=== PATIENT | male | born 1940 | race Caucasian/White ===

== ENCOUNTER 2018-08-06 09:39 | Day surgery (SDC) | payer MEDICARE, BC ==
[~2018-08-06 09:39] MED LIST: ceFAZolin 2 GM/50 ML 2 GM/50 ML BAG IV ONE
[2018-08-06] MEDS ORDERED: LACTATED RINGERS 1,000 ML IV ONE (10:31)
--- NOTE | 2018-08-06 10:41 | ANESTHESIA ---
Pre-Anesthesia VS, & Labs - Diagnosis Bilateral inguinal hernias - Procedure Bilateral open inguinal hernia repair Vital Signs: Temp Pulse Resp BP Pulse Ox 36.6 C 77 18 154/84 H 97 08/06/18 09:55 08/06/18 09:55 08/06/18 09:55 08/06/18 09:55 08/06/18 09:55 Height 5 ft 6 in Weight (kg) 69.2 kg - NPO >8 hours Home Medications and Allergies Home Medications: Ambulatory Orders Acetaminophen [Tylenol] 650 mg PO Q6H PRN 08/01/18 Glucosamine HCl 1 tab PO DAILY 08/01/18 Levothyroxine Sodium 75 mcg PO DAILY 08/01/18 [place]-3/Dha/Epa/Fish Oil [Fish Oil 1,000 mg Softgel] 1 each PO DAILY 08/01/18 [place] 1 tab PO DAILY 08/01/18 Acetaminophen [Tylenol] 650 mg PO Q6H PRN 08/01/18 Glucosamine HCl 1 tab PO DAILY 08/01/18 Levothyroxine Sodium 75 mcg PO DAILY 08/01/18 [place]-3/Dha/Epa/Fish Oil [Fish Oil 1,000 mg Softgel] 1 each PO DAILY 08/01/18 [place] 1 tab PO DAILY 08/01/18 Allergies/Adverse Reactions: Allergies Allergy/AdvReac Type Severity Reaction Status Date / Time No Known Drug Allergies Allergy Verified 08/01/18 11:10 Anes History & Medical History - Anesthetic History Family history of Anesthesia Complications: Denies Family history of Malignant Hyperthermia: Denies - Medical History Cardiovascular: reports: None Pulmonary: reports: None Gastrointestinal: reports: None Urinary: reports: Benign prostate hypertrophy Neuro: reports: None Musculoskeletal: reports: None Endocrine/Autoimmune: reports: HyPOthyroidism Blood Disorders: reports: None Skin: reports: None Smoking Status: Former smoker (Quit 20 years ago) Psychosocial: reports: No issues indicated Exam General: Alert, Oriented x3, Cooperative, No acute distress Dental: WNL Mouth Openin Fingerbreadth Neck Mobility: Normal Mallampati classification: III Thyromental Distance: less than 4 cm (2 FB) Respiratory: Lungs clear, Normal breath sounds, No respiratory distress, No accessory muscle use Cardiovascular: Regular rate, Normal S1, Normal S2, No murmurs Mental/Cognitive Status: Alert/Oriented X3, Normal for patient Plan Anesthesia Type: General Consent for Procedure(s) Verified and Reviewed: Yes Code Status: Attempt Resuscitation ASA classification: 2-Mild systemic disease Is this case an emergency?: No
[2018-08-06] MEDS ORDERED: BUPIVACAINE 0.5% PF 30 ML VIAL ONE (11:42)
[2018-08-06] MEDS ORDERED: LIDOCAINE-MPF 2% 5 ML VIAL IM ONE (12:00)
[2018-08-06] MEDS ORDERED: ACETAMINOPHEN 1,000 MG/100 ML 100 ML IV ONE (12:00)
[2018-08-06] MEDS ORDERED: MIDAZOLAM 2 MG/2 ML VIAL IVP ONE (12:00)
[2018-08-06] MEDS ORDERED: PROPOFOL 200 MG/20 ML VIAL IVP ONE (12:00)
[2018-08-06] MEDS ORDERED: DEXAMETHASONE 4 MG/ML VIAL IVP ONE (12:00)
[2018-08-06] MEDS ORDERED: fentaNYL 100 MCG/2 ML VIAL IVP ONE (12:00)
[2018-08-06] MEDS ORDERED: ONDANSETRON 4 MG/2 ML VIAL IVP ONE (12:00)
[2018-08-06] MEDS ORDERED: BUPIVACAINE 0.5% PF 30 ML VIAL SUBQ ONE (12:25)
--- NOTE | 2018-08-06 13:48 | OPERATIVE REPORT ---
Operative Report - General Procedure Date: 08/06/18 Planned Procedure: Bilateral inguinal herniorrhaphy Pre-Op Diagnosis: Bilateral inguinal hernia Procedure Performed: Left direct and indirect inguinal herniorrhaphy with mesh Right direct inguinal herniorrhaphy with mesh Post Op Diagnosis: Left direct and indirect inguinal hernia, right direct inguinal hernia - Procedure Note Primary Surgeon: Danilo Osman MD Anesthesia Provider: Cony Bernstein CRNA Anesthesia Technique: General LMA, Local (30 mL of half percent Marcaine) IV Fluids (mL): 900 Estimated Blood Loss (mL): 10 Drain/Tube Type: Other (None.) Complications: None. - Other Other Information/Narrative: OPERATIVE DESCRIPTION/REPORT: After verbal and written informed consent was obtained detailing the risks of infection, bleeding requiring transfusion with its risks, nerve injury, and , and after I met with the patient confirming the surgery and the site of the surgery and after initialing the site of the surgery with a surgical marker, the patient was brought to the operative suite and placed supine on the operating table. Great care was taken to avoid pressure points to prevent pressure necrosis or nerve injury. Monitoring devices were applied along with TEDs and pneumatic compressive stockings (to prevent DVT). The patient received preoperative antibiotics for surgical prophylaxis. Cony Bernstein CRNA sedated and anesthetized the patient for the entire procedure. The patient was prepped and draped in the usual sterile manner. With the patient draped my initials were clearly visible. A "time in" then confirmed that the patient was identified with 3 identifiers (name, date and medical record number), the history and physical was in the chart, the signed consent confirming the procedu re was in the chart, the patient was in the correct position, the aforementioned prophylactic measures were in place or given, we had the correct personnel and equipment to complete the procedure and that anesthesia, surgery and nursing were given an opportunity to express any concerns. With the agreement of everyone in the room, we proceeded with the operation. I started on the left-hand side first as this was a larger hernia. On the left a standard inguinal incision was made and dissection was carried down to the external oblique aponeurosis using a combination of Metzenbaum scissors and Bovie electrocautery. The external oblique aponeurosis was cleared of overlying adherent tissue, and the external ring was delineated. The external oblique was the incised with a scalpel and this incision was carried out to the external ring using Metzenbaum scissors. Having exposed the inguinal canal, the cord structures were from the canal using blunt dissection, and a [place] drain was placed around the cord structures at the level of the pubic tubercle. This [place] drain was then used to retract the cord structures as needed. Adherent cremasteric muscle was dissected free from the cord using Bovie electrocautery. The cord was then explored using a combination of sharp and blunt dissection, and a sac was found. The hernia sac was dissected back to the internal ring usin g combination of blunt dissection as well as Bovie electrocautery and once the internal ring was reached the hernia sac was suture ligated with 2-0 Vicyl and transected. The stump was examined for bleeding and there was none. A large Bard Perfix plug (Ref# [id number], Lot# [id number], use by 2023-05-13) inserted into the indirect ring and secured with 2-0 PDS to the edge of the ring. A smaller hernia was found coming from the floor of the inguinal canal medial to the inferior epigastric vessels. This was dissected back to the hernia opening. The hernia was inverted back into the abdominal cavity and the conjoined tenson was sutured to the shelving edge loosley to keep this hernia "out of my way." This permitted the floor of the inguinal canal to be repaired without the hernia in my way. The Perfix enlay patch was then placed on the floor of the inguinal canal and secured superiorly to the conjoined tendon and inferiorly to the shelving edge of Pouparts ligament using interrupted 0 PDS sutures. At the pubic tubercle a 0 PDS stitch was used to secure the mesh. The mesh was secured around the cord structures with a 2-0 PDS loosely thus creating a new internal ring. This repaired the direct defect. The [place] drain was removed. The wound was then irrigated using sterile saline, and hemostasis was obtained using Bovie electrocautery. The incision in the external oblique was approximated using a 2-0 Vicryl in a running fashion, thus reforming the external ring. The fascia and the skin were injected with 15 mL of half percent Marcaine. The skin incision was approximated with 4-0 Monocryl in a subcuticular fashion. On the right side, a standard inguinal incision was made and dissection was carried down to the external oblique aponeurosis using a combination of Mary enbaum scissors and Bovie electrocautery. The external oblique aponeurosis was cleared of overlying adherent tissue, and the external ring was delineated. The external oblique was the incised with a scalpel and this incision was carried out to the external ring using Metzenbaum scissors. Having exposed the inguinal canal, the cord structures were from the canal using blunt dissection, and a [place] drain was placed around the cord structures at the level of the pubic tubercle. This [place] drain was then used to retract the cord structures as needed. Adherent cremasteric muscle was dissected free from the cord using Bovie electrocautery. The cord was then explored using a combination of sharp and blunt dissection, and no sac was found. The hernia was found coming from the floor of the inguinal canal medial to the inferior epigastric vessels. This was dissected back to the hernia opening. The hernia was inverted back into the abdominal cavity and a large Bard Perfix plug (Ref# [id number], Lot# [id number], use by 2023-05-13) inserted into the hernia defect. The plug was secured to the edge of the hernia defect using interrupted 2-0 PDS sutures. This permitted the floor of the inguinal canal to be repaired without the hernia in my way. The Perfix enlay patch was then placed on the floor of the inguinal canal and secured superiorly to the conjoined tendon and inferiorly to the shelving edge of Pouparts ligament using interrupted 2-0 PDS sutures. At the pubic tubercle a 2-0 PDS stitch was used to secure the mesh. The mesh was secured around the cord structures with a 2-0 PDS loosely thus creating a new internal ring. The [place] drain was removed. The wound was then irrigated using sterile saline, and hemostasis was obtained using Bovie electrocautery. The incision in the external oblique was approximated using a 2-0 Vicryl in a running fashion, thus reforming the external ring. The fascia and the skin were injected with 15 mL of half percent Marcaine. The skin incision was approximated with 4-0 Monocryl in a subcuticular fashion. The skin was prepped with benzoin and steristrips were applied bilaterally. At this point a time out was performed that confirmed that all the counts were correct, the procedure that was performed, the blood loss, the IV fluids administered, and the patients condition. A dressing was then applied. Gentle downward traction ensured that the testes were well seated in the scrotum. Having tolerated the procedure well, the patient was taken to recovery room in good and stable condition. Dragon disclaimer: This document was created in part using voice recognition technology. Because of the inherent limitations of the system ([employer]'s Dragon Dictate user manual states that the licensee understands that speech recognition is a statistical process and that recognition errors are inherent in the process), occasional same sounding word substitutions and grammatical errors do occur and persist despite proofreading. Please read this document for context.
[2018-08-06] MEDS ORDERED: ONDANSETRON 4 MG/2 ML VIAL IVP PRN (14:10)
[2018-08-06] MEDS ORDERED: HYDROcod/ACETAM 5/325 MG TABLET PO PRN (14:10)
[2018-08-06] MEDS ORDERED: HYDROmorphone 0.5 MG/0.5 ML SYRINGE IVP PRN (14:10)
[2018-08-06] MEDS ORDERED: fentaNYL 100 MCG/2 ML VIAL ONE (14:16)
[2018-08-06] MEDS ORDERED: HYDROcod/ACETAM 5/325 MG TABLET ONE (14:58)
[2018-08-06 16:24] VITALS: BP 142/90
== END 2018-08-06 09:40 | disposition home or self-care (01) ==
LOC: SDS 09:39
PROVIDERS: ATTEND Surgery
PROC: 0YUA0JZ Supplement Bilateral Inguinal Region with Synthetic Substitute, Open Approach (ICD-10-PCS; principal; 2018-08-06 10:45)
DX: K40.20 Bilateral inguinal hernia, without obstruction or gangrene, not specified as recurrent (principal); N40.0 Benign prostatic hyperplasia without lower urinary tract symptoms; Z87.891 Personal history of nicotine dependence; E03.9 Hypothyroidism, unspecified
CPT/HCPCS: 49505; A9270; C1781; J0131; J0690; J7120

== ENCOUNTER 2020-12-22 10:04 | Outpatient (CLI) | payer MEDICARE, BC | END 2020-12-22 10:05 | disposition home or self-care (01) | LOC: DI 10:04 | PROVIDERS: ATTEND Physician Assistant | DX: I48.91 Unspecified atrial fibrillation (principal); R00.0 Tachycardia, unspecified; I77.819 Aortic ectasia, unspecified site | CPT/HCPCS: 93306 ==

== ENCOUNTER 2022-12-04 12:23 | Outpatient (CLI) | payer MEDICARE, BC ==
--- NOTE | 2022-12-04 15:32 | DEXA Report ---
PROCEDURE: Dexa Spine and/or Hip INDICATIONS: OSTEOPENIA TECHNIQUE: Dual energy x-ray absorptiometry (DXA) was performed on a [employer] System. Regions measur ed are the AP Spine, femoral neck, and if needed forearm. COMPARISON: None FINDINGS: Lumbar Spine: Bone Mineral Density 1.055 g/cm/cm,T score -1.4. Left Femoral Neck: Bone Mineral Density 0.686 g/cm/cm, T score -3. Left Hip: Bone Mineral Density 0.752 g/cm/cm,T score -2.4. (T score greater or equal to -1.0: NORMAL) (T score from -1.1 to -2.4: OSTEOPENIA) (T score less than or equal to -2.5 to: OSTEOPOROSIS) Impression: By WHO criteria, this patient has osteoporosis. Patients with diagnosis of osteoporosis or osteopenia should have regular bone mineral density assess ment. For those eligible for Medicare, routine testing is allowed once every 2 years. Testing frequ ency can be increased for patients who have rapidly progressing disease or for those who are receivin g medical therapy to restore bone mass. Reviewed by: Kevin Eaton on 12/04/2022 3:31 PM PDT Approved by: Kevin Eaton on 12/04/2022 3:31 PM PDT Station ID: [id number]
== END 2022-12-04 12:24 | disposition home or self-care (01) ==
LOC: DI 12:23
PROVIDERS: ATTEND Family Medicine
DX: M48.56XD Collapsed vertebra, not elsewhere classified, lumbar region, subsequent encounter for fracture with routine healing (principal); M81.0 Age-related osteoporosis without current pathological fracture

== ENCOUNTER 2024-01-02 14:14 | Outpatient (CLI) | payer MEDICARE, BC ==
--- NOTE | 2024-01-02 16:49 | XRAY Report ---
PROCEDURE: Ankle 3+V RT INDICATIONS: RIGHT ANKLE PAIN TECHNIQUE: 3 views of the ankle were acquired. COMPARISON: None. FINDINGS: Bones: No fractures or dislocations. Ankle mortise is normally aligned. No suspicious bony lesions . Soft tissues: Mild soft tissue swelling around ankle joint is seen. Moderate tibiotalar joint effusio n. Achilles tendon appears normal. IMPRESSION: No acute ankle fracture or dislocation. Mild ankle soft tissue swelling and moderate join t effusion. Ankle mortise is congruent. Reviewed by: Austin Tovar MD on 01/02/2024 4:47 PM PDT Approved by: Austin Tovar MD on 01/02/2024 4:47 PM PDT Station ID: [id number]
== END 2024-01-02 14:15 | disposition home or self-care (01) ==
LOC: DI.N 14:14
PROVIDERS: ATTEND Family Medicine
DX: M25.471 Effusion, right ankle (principal); R93.89 Abnormal findings on diagnostic imaging of other specified body structures